=== PATIENT | female | born 1960 ===

== ENCOUNTER 2016-12-31 08:50 | Day surgery (SDC) | payer MEDICAID ==
[2016-12-31 10:38] VITALS: TEMP 97
[2016-12-31] MEDS ORDERED: Propofol 10 mg/ml Inj (20 ML) ONE (11:01)
[2016-12-31] MEDS ORDERED: Lactated Ringer's 500 ML IV SCH (12:15)
[2016-12-31 13:14] VITALS: RESP 20; O2SAT 99
[2016-12-31 13:20] VITALS: BP 110/64; PULSE 70
== END 2016-12-31 13:15 | disposition home or self-care (01) ==
LOC: C.ENDO 08:50
PROVIDERS: ATTEND Internal Medicine Gastroenterology
DX: K21.9 Gastro-esophageal reflux disease without esophagitis (principal); K64.8 Other hemorrhoids; K63.3 Ulcer of intestine; K64.2 Third degree hemorrhoids
CPT/HCPCS: 45380; 88305; 88312; 88313; 88342; J2001; J2704; J3010; J7120